=== PATIENT | female | born 1970 | race Two or more races ===

== ENCOUNTER 2019-06-18 09:42 | Inpatient (IN) | payer OTHER ==
[~2019-06-18] VITALS: Ht 157.5 cm; Wt 74.6 kg
--- NOTE | 2019-06-18 10:05 | NUR ---
Received reports from [facility], received patient, vs stable, denies chest pain or sob, walks with steady gait, pt orientated to room and call Md karol paged for orders will continue to monitor.
[2019-06-18 10:13] VITALS: BP 136/88
--- NOTE | 2019-06-18 10:24 | NUR ---
Patient came with 20g to Rt fa, flushes with issues. Placed 06/18/19
[2019-06-18] MEDS ORDERED: NITROGLYCERIN 0.4 MG SL TAB SL PRN (10:45)
[2019-06-18] MEDS ORDERED: ACETAMINOPHEN 500 MG TAB PO PRN (10:45)
[2019-06-18] MEDS ORDERED: HYDROcodone-ACET 5/325MG TAB PO PRN (10:45)
[2019-06-18] MEDS ORDERED: MORPHINE SULF INJ 2 MG/ML SYRINGE 1ML IV PRN ×2 (10:45)
[2019-06-18] MEDS ORDERED: ONDANSETRON HCL 4 MG/2 ML VIAL IV PRN (10:45)
[2019-06-18] MEDS ORDERED: LORazepam 0.5 MG TAB PO PRN (11:00)
[2019-06-18 11:18] VITALS: BP 138/88
--- NOTE | 2019-06-18 12:05 | NUR ---
Patient in bed, tearful and anxious, about her diagnosis and how long she will be here. Patient educated on possible discharge date and testing that needs to be done. Patient requesting something for anxiety.
[2019-06-18] MEDS: methIMAzole 5 MG TAB PO SCH (12:09)
[2019-06-18 12:43] VITALS: BP 156/83
--- NOTE | 2019-06-18 13:00 | NUR ---
Patient sitting at side of bed, reports feeling better, she has spoken with her family, will continue to monitor.
[2019-06-18 16:23] VITALS: BP 122/64
[2019-06-18 22:00] VITALS: BP 126/70
[2019-06-18] MEDS: PROPRANOLOL HCL 20 MG TAB PO SCH (22:36)
[2019-06-19 05:00] VITALS: BP 135/80
--- NOTE | 2019-06-19 07:32 | NUR ---
Opening Shift Note Assumed care of patient, patient is sitting in bed awake and alert. No S/S of distress or SOB, denies any pain at the moment. Plan of care discussed, instructed to call for assistance call light within reach. Will continue to monitor for changes Q1hr and PRN. Fall and safety precautions in place.
[2019-06-19 08:00] VITALS: BP 133/79
[2019-06-19] MEDS: cefTRIAXone 1GM/50ML D5W 50 ML IV SCH (08:57)
[2019-06-19 09:00] VITALS: BP 133/79
[2019-06-19] MEDS ORDERED: FAMOTIDINE 20 MG TAB PO SCH (10:00)
[2019-06-19] MEDS: FAMOTIDINE 20 MG TAB PO SCH (10:30)
[2019-06-19] MEDS: PROPRANOLOL HCL 20 MG TAB PO SCH ×2 (10:31→21:36)
[2019-06-19] MEDS: methIMAzole 5 MG TAB PO SCH (10:31)
--- NOTE | 2019-06-19 12:10 | NUR ---
PATIENT SEEN BY DR. KINGSTON, DISCUSSED PLAN OF CARE. NEW ORDER FOR 12 LEAD EKG AND CARDIOLOGY CONSULT PLACED.
[2019-06-19 13:00] VITALS: BP 132/82
--- NOTE | 2019-06-19 14:10 | NUR ---
12 LEAD EKG OBTAINED AND SEEN BY SUDEEP FOR CARDIAC CONSULT.
[2019-06-19] MEDS ORDERED: MAGNESIUM OXIDE 400 MG TAB PO ONE (16:45)
[2019-06-19 17:00] VITALS: BP 119/74
--- NOTE | 2019-06-19 18:34 | NUR ---
PATIENT CURRENTLY RESTING IN BED, WATCHING TV. DENIES ANY PAIN, NOT IN APPARENT DISTRESS. WILL CONTINUE TO MONITOR Q1HR AND PRN.
--- NOTE | 2019-06-19 19:20 | NUR ---
Opening Shift Note Assumed care of patient, awake and alert, resting in bed. No S/S of distress/SOB. Instructed on POC and to call for assist PRN, will continue to monitor for changes Q1hr and PRN. Call light and bedside table are within reach. Bed is in lowest position and bed rails 2x.
[2019-06-19 22:00] VITALS: BP 131/73
[2019-06-20 05:00] VITALS: BP 141/79
--- NOTE | 2019-06-20 07:33 | NUR ---
Received report from noc shift rn. Patient alert and oriented x4. Denies any pain, no SOB. Plan of care discussed. Call light and phone within reach. Maintained safety precautions bed is in lowest position and bed rails 2x. Will continue to monitor q1hr and prn
[2019-06-20 08:00] VITALS: BP 126/67
[2019-06-20] MEDS: cefTRIAXone 1GM/50ML D5W 50 ML IV SCH (08:46)
[2019-06-20 09:22] VITALS: BP 142/76
[2019-06-20] MEDS: FAMOTIDINE 20 MG TAB PO SCH (09:28)
[2019-06-20] MEDS: PROPRANOLOL HCL 20 MG TAB PO SCH (09:28)
[2019-06-20] MEDS: methIMAzole 5 MG TAB PO SCH (09:28)
[2019-06-20 13:33] VITALS: BP 128/79
[2019-06-20 14:40] VITALS: BP 126/67
--- NOTE | 2019-06-20 16:10 | NUR ---
PATIENT DISCHARGED AT THIS TIME, AMBULATORY, ALERT AND ORIENTED X4. INSTRUCTIONS GIVEN ON DISCHARGE SUMMARY AND FOLLOW UP APPOINTMENT. PATIENT VERBALIZED UNDERSTANDING. COPY OF PRESCRIPTION GIVEN TO PATIENT. PERIPHERAL IV DISCONTINUED AND TELE BOX RETURNED TO ICU.
== END 2019-06-20 16:10 | disposition home or self-care (01) | DRG 645 ==
LOC: TELE-EAST 10:01
PROVIDERS: ADMIT Nurse Practitioner Acute Care; ATTEND Internal Medicine Nephrology
DX: E05.90 Thyrotoxicosis, unspecified without thyrotoxic crisis or storm (principal); N18.3 Chronic kidney disease, stage 3 (moderate); I12.9 Hypertensive chronic kidney disease with stage 1 through stage 4 chronic kidney disease, or unspecified chronic kidney disease; R07.89 Other chest pain; Z82.49 Family history of ischemic heart disease and other diseases of the circulatory system; Z91.19 Patient's noncompliance with other medical treatment and regimen; Z79.899 Other long term (current) drug therapy
CPT/HCPCS: 36415; 76536; 84443; 84484; 87086; 93306; G0378; J0696